=== PATIENT | male | born 1990 | race Caucasian/White ===

== ENCOUNTER 2024-04-26 16:01 | Emergency (ER) | payer MEDICAID, OTHER ==
[~2024-04-26] VITALS: Ht 193 cm; Wt 68.1 kg
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
[2024-04-26] MEDS ORDERED: IBUP-1455 PO (19:24)
[2024-04-26] MEDS ORDERED: ACET500T58 PO (19:24)
[2024-04-26 19:32] VITALS: BP 120/90; TEMP 98
[2024-04-26 19:33] VITALS: PULSE 94; RESP 16; O2SAT 99
== END 2024-04-26 19:42 | disposition home or self-care (01) ==
LOC: ER 16:01
DX: S16.1XXA Strain of muscle, fascia and tendon at neck level, initial encounter (principal); S80.02XA Contusion of left knee, initial encounter; S09.90XA Unspecified injury of head, initial encounter; V43.52XA Car driver injured in collision with other type car in traffic accident, initial encounter; Y93.89 Activity, other specified; Y92.410 Unspecified street and highway as the place of occurrence of the external cause; Y99.8 Other external cause status
CPT/HCPCS: 70450; 72040; 73562